=== PATIENT | male | born 1970 | race American Indian/Alaskan Native ===

== ENCOUNTER 2019-07-25 10:03 | Emergency (ER) | payer BC ==
[2019-07-25 10:10] VITALS: BP 150/95
--- NOTE | 2019-07-25 11:31 | Emergency Department Report ---
ED Upper Extremity Inj HPI - General Chief Complaint: Extremity Problem,Nontraumatic Stated Complaint: SORNESS IN ELBOW/PAIN Time Seen by Provider: 07/25/19 11:18 Source: patient Mode of arrival: Ambulatory Limitations: No Limitations - History of Present Illness Initial Comments: Is is a 49-year-old -[place] male who presents to the emergency room with bilateral elbow pain for 2 months. Patient reports pain is laterally on both elbows with swelling. Patient states when he wake up in the morning swelling is improved but with increased movement swelling start spine and today. He denies recent injury. Patient states he does work in an environment with repetitive movement. Patient states over the past 3 days he has been out of work and noticed pain improved both since he returns to work increased pain. He states pain radiates from elbow to the fingers occasionally. He denies numbness or tingling, weakness, bruising, or recent injury. MD Complaint: Injury to:: left, right, elbow Onset/Timin -: month(s) Other Extremity Injury: Elbow: Left, Right Other Injuries: none Severity scale (0 -10): 4 Worsens With: movement of extremity Associated Symptoms: denies other symptoms - Related Data Previous Rx's Medication Instructions Recorded Last Taken Type Acetaminophen/Codeine [Tylenol #3] 1 tab PO Q6H PRN #20 tab 02/23/16 Unknown Rx Prednisone [predniSONE 10 mg 10 mg PO .TAPER #1 tab.ds.pk 02/23/16 Unknown Rx (6-Day Pack, 21 Tabs)] Ibuprofen [Motrin 800 MG tab] 800 mg PO Q8HR PRN #20 tablet 07/25/19 Unknown Rx Allergies Allergy/AdvReac Type Severity Reaction Status Date / Time No Known Allergies Allergy Unverified 02/23/16 16:52 ED Review of Systems ROS: Stated complaint: SORNESS IN ELBOW/PAIN Other details as noted in HPI Constitutional: denies: chills, fever Respiratory: denies: cough, shortness of breath, wheezing Cardiovascular: denies: chest pain, palpitations Gastrointestinal: denies: abdominal pain, nausea, diarrhea Musculoskeletal: arthralgia (bilateral elbow pain and swelling). denies: back pain, joint swelling Skin: denies: rash, lesions Neurological: denies: headache, weakness, paresthesias Psychiatric: denies: anxiety, depression ED Past Medical Hx - Past Medical History Previous Medical History?: No - Surgical History Past Surgical History?: No - Social History Smoking Status: Current Every Day Smoker Substance Use Type: Alcohol - Medications Home Medications: Home Medications Medication Instructions Recorded Confirmed Last Taken Type Acetaminophen/Codeine [Tylenol #3] 1 tab PO Q6H PRN #20 tab 02/23/16 Unknown Rx Prednisone [predniSONE 10 mg 10 mg PO .TAPER #1 tab.ds.pk 02/23/16 Unknown Rx (6-Day Pack, 21 Tabs)] Ibuprofen [Motrin 800 MG tab] 800 mg PO Q8HR PRN #20 tablet 07/25/19 Unknown Rx ED Physical Exam - General Limitations: No Limitations General appearance: alert, in no apparent distress - Respiratory Respiratory exam: Present: normal lung sounds bilaterally. Absent: respiratory distress - Cardiovascular Cardiovascular Exam: Present: regular rate, normal rhythm. Absent: systolic murmur, diastolic murmur, rubs, gallop - GI/Abdominal GI/Abdominal exam: Present: soft, normal bowel sounds - Expanded Upper Extremity Exam Left Shoulder Exam: Present: normal inspection, full ROM Upper Arm exam: Present: normal inspection, full ROM Elbow exam: Present: full ROM, tenderness (TTP over lateral epicondyle, mild swelling), swelling, pain w/ pronation/supination. Absent: abrasion, lacerat ion, ecchymosis, deformity, crepidus, dislocation, erythema, effusion, tenderness over radial head Forearm Wrist exam: Present: normal inspection, full ROM Hand Wrist exam: Present: normal inspection, full ROM Neuro motor exam: Present: wrist extension intact, thumb opposition intact, thumb IP flexion intact, thumb adduction intact, fingers 2-5 abduction intact Neurosensory exam: Present: radial nerve intact, ulnar nerve intact, median nerve intact Vascular: Present: normal capillary refill (brisk), radial pulse (2+) Right Shoulder Exam: Present: normal inspection, full ROM Upper Arm exam: Present: normal inspection, full ROM Elbow exam: Present: full ROM, tenderness (TTP over lateral epicondyle), swelling, pain w/ pronation/supination. Absent: abrasion, laceration, ecchymosis, deformity, crepidus, dislocation, erythema, effusion, tenderness over radial head Forearm Wrist exam: Present: normal inspection, full ROM Hand Wrist exam: Present: normal inspection, full ROM Neuro motor exam: Present: wrist extension intact, thumb opposition intact, thumb IP flexion intact, thumb adduction intact, fingers 2-5 abduction intact Neurosensory exam: Present: radial nerve intact, ulnar nerve intact, median nerve intact Vascular: Present: normal capillary refill (brisk), radial pulse (2+) - Neurological Exam Neurological exam: Present: alert, oriented X3, normal gait - Psychiatric Psychiatric exam: Present: normal affect, normal mood - Skin Skin exam: Present: warm, dry, intact, normal color. Absent: rash ED Course Vital Signs 07/25/19 10:09 Temperature 99.1 F Pulse Rate 80 Respiratory 16 Rate Blood Pressure 150/95 O2 Sat by Pulse 98 Oximetry ED Medical Decision Making - Radiology Data Radiology results: report reviewed RIGHT ELBOW 4 VIEWS. INDICATION / CLINICAL INFORMATION: bilateral elbow pain and swelling COMPARISON: None available. FINDINGS: BONES / JOINT(S): No acute fracture or subluxation. No significant arthritis. SOFT TISSUES: No significant abnormality. ADDITIONAL FINDINGS: None. - Medical Decision Making This is a 49 y.o. male that presents with swelling and pain over bilateral elbows x 1 month. Patient is stable and examined by me. On exam TTP over bilateral lateral epicondyle and pain with FROM. Obtained x-rays of bilateral elbows with no acute findings. No acute signs of distress noted. Given ibuprofen 800 mg po once in ER. This is believed to be bilateral epicondylitis. Patient instructed to rest, apply ice, and take NSAIDs. Start ibuprofen 800 mg po tid PRN. Referral to primary care doctor for follow-up. Patient agrees to ED plan of care. Discharged home and follow up with PCP in 3 days. Critical care attestation.: If time is entered above; I have spent that time in minutes in the direct care of this critically ill patient, excluding procedure time. ED Disposition Clinical Impression: Bilateral elbow joint pain Epicondylitis, lateral (tennis elbow) Qualifiers: Laterality: bilateral Qualified Code(s): M77.11 - Lateral epicondylitis, right elbow; M77.12 - Lateral epicondylitis, left elbow Disposition: TO HOME OR SELFCARE Is pt being admited?: No Condition: Stable Instructions: Tennis Elbow (ED) Additional Instructions: Rest Use ice or heat on affected area for 20 minutes and off for 2 hours. Take pain medication 3 times a day as needed for pain. Follow up with Primary Care Provider in 2-3 days. Prescriptions: Ibuprofen [Motrin 800 MG tab] 800 mg PO Q8HR PRN #20 tablet PRN Reason: Pain , Severe (7-10) Referrals: ASPEN GUADARRAMA DO [Staff Physician] - 3-5 Days [facility] [Provider Group] - 3-5 Days [facility] [Provider Group] - 3-5 Days YANI STILL MD [Staff Physician] - 3-5 Days Forms: Work/School Release Form(ED) Time of Disposition: 12:48
[2019-07-25] MEDS ORDERED: IBUPROFEN 800 MG TAB PO ONE (11:50)
--- NOTE | 2019-07-25 12:31 | XRay Report ---
RIGHT ELBOW 4 VIEWS. INDICATION / CLINICAL INFORMATION: bilateral elbow pain and swelling COMPARISON: None available. FINDINGS: BONES / JOINT(S): No acute fracture or subluxation. No significant arthritis. SOFT TISSUES: No significant abnormality. ADDITIONAL FINDINGS: None. Signer Name: Kana Do MD Signed: 07/25/2019 12:26 PM Workstation Name: [id number]
== END 2019-07-25 13:25 | disposition home or self-care (01) ==
LOC: ED 10:03
DX: M77.11 Lateral epicondylitis, right elbow (principal); M77.12 Lateral epicondylitis, left elbow; F17.200 Nicotine dependence, unspecified, uncomplicated; Z79.1 Long term (current) use of non-steroidal anti-inflammatories (NSAID); Z79.899 Other long term (current) drug therapy